=== PATIENT | female | born 1955 | race Hispanic/Latino ===

== ENCOUNTER 2020-05-02 11:50 | Emergency (ER) | payer OTHER, SELFPAY ==
--- NOTE | 2020-05-02 12:53 | CT ---
Exam: Head CT without contrast HISTORY: Pain. Trauma. COMPARISON: none FINDINGS: Hemorrhage: No intraparenchymal hemorrhage or extra-axial hematoma. Brain parenchyma: Cortical yoder-white matter differentiation is preserved. No mass effect or midline shift. Basilar cisterns are patent. Ventricular system: Ventricles and sulci are patent and symmetric. Calvarium: Intact. Sinuses and mastoid air cells: Adequate aeration. IMPRESSION: No intracranial post traumatic sequelae.
--- NOTE | 2020-05-02 12:56 | CT ---
Exam: CT cervical spine without contrast HISTORY: Trauma. Pain. COMPARISON: None FINDINGS: No craniocervical dissociation. Appropriate alignment of the lateral masses of C1 and C2. Intact odon toid process Appropriate alignment of the facets. Straightening of cervical lordosis may be due to patient position, muscle spasm or cervical collar. Soft tissue neck structures: No mass, lymphadenopathy or hematoma. No prevertebral soft tissue swelli ng. Upper mediastinum and lung apices: Chronic changes along parenchyma with bilateral apical pleural thi ckening. Central spinal canal: There are varying degrees of significant central canal stenosis and significant neural foraminal narrowing on the basis of degenerative change. Technique limits evaluation Vertebral bodies: Cervical spine vertebral body height is maintained. No fracture. Remote fracture in volving the C7 spinous process. IMPRESSION: 1. No fracture 2. Straightening of cervical lordosis as above. Cervical spine MRI there is concern for ligamentous i njury.
== END 2020-05-02 12:52 | disposition home or self-care (01) ==
LOC: NAV ERS 11:50
DX: S13.9XXA Sprain of joints and ligaments of unspecified parts of neck, initial encounter (principal); S00.03XA Contusion of scalp, initial encounter; K21.9 Gastro-esophageal reflux disease without esophagitis; Z87.891 Personal history of nicotine dependence; Z79.899 Other long term (current) drug therapy; V49.40XA Driver injured in collision with unspecified motor vehicles in traffic accident, initial encounter
CPT/HCPCS: 70450; 72125